=== PATIENT | male | born 1955 | race Caucasian/White ===

== ENCOUNTER → 2018-11-29 | Outpatient (CLI) | payer BC ==
[~2018-11-29] MED LIST: HYOS0.1281 PO; L.AC1CAP6 PO; MULT-1056 PO; OMG1KC PO; PHEN-640 PO; SULF1TAB35 PO; TAMS0.4C98 PO; TRAM-42 PO
--- NOTE | 2018-11-29 14:27 | Diagnostic Imaging Report ---
Indication: Bladder cancer Bladder ultrasound. There are are 3 calculi in the urinary bladder largest of which has a long axis diameter 2.7 cm. There are no detectable stones in the kidneys or the ureters. Impression: Stones present in the urinary bladder. There is no appreciable nephrolithiasis. Dictated by: Dictated on workstation # [id number]
== END ==
LOC: RAD 13:43
PROVIDERS: ATTEND Urology
DX: N21.0 Calculus in bladder (principal)
CPT/HCPCS: 74018

== ENCOUNTER 2018-11-30 14:15 | Outpatient (CLI) | payer BC ==
[~2018-11-30] VITALS: Ht 185.5 cm; Wt 75.0 kg
[2018-11-30] MEDS ORDERED: OMG1KC PO (14:31)
[2018-11-30] MEDS ORDERED: L.AC1CAP6 PO (14:31)
[2018-11-30] MEDS ORDERED: MULT-1056 PO (14:31)
[2018-11-30] MEDS ORDERED: TAMS0.4C98 PO (14:31)
[2018-12-01] MEDS ORDERED: PHEN-640 PO (09:18)
[2018-12-01] MEDS ORDERED: SULF1TAB35 PO (09:18)
[2018-12-01] MEDS ORDERED: TRAM-42 PO (09:19)
[2018-12-01] MEDS ORDERED: HYOS0.1281 PO (09:19)
== END 2018-11-30 14:36 | disposition home or self-care (01) ==
LOC: PREOP 14:15
PROVIDERS: ATTEND Urology
DX: Z01.818 Encounter for other preprocedural examination (principal)

== ENCOUNTER 2018-12-01 06:11 | Day surgery (SDC) | payer BC ==
[~2018-12-01] VITALS: Ht 185 cm; Wt 75.0 kg
[2018-12-01] VITALS (10 sets, daily range): BP systolic 81–139; BP diastolic 44–88
[~2018-12-01 06:11] MED LIST changes: -HYOS0.1281 PO; -PHEN-640 PO; -SULF1TAB35 PO; -TRAM-42 PO
[2018-12-01] MEDS: LACTATED RINGERS 1,000 ML IV PRN ×2 (06:30→08:38)
[2018-12-01] MEDS ORDERED: cefTRIAXone FOR IV USE 1,000 MG in WATER (STERILE) FOR INJECTION 10 ML IV ONE (06:30)
[2018-12-01] MEDS ORDERED: CATHETER FLUSH 10 ML SYR IV PRN (06:45)
[2018-12-01] MEDS ORDERED: LIDOCAINE PF 2% 5 ML (XYLOCAINE) VIAL ONE (07:09)
[2018-12-01] MEDS ORDERED: proPOfol 200 MG/20 ML (DIPRIVAN) VIAL IV ONE (07:09)
[2018-12-01] MEDS ORDERED: MIDAZOLAM 2 MG/2 ML (VERSED) VIAL ONE (07:10)
[2018-12-01] MEDS ORDERED: fentaNYL INJECTION 100 MCG/2 ML AMP ONE (07:10)
--- NOTE | 2018-12-01 07:23 | Progress Note-Pre Operative ---
Pre-Operative Progress Note H&P Reviewed The H&P was reviewed, patient examined and no changes noted. Date Seen by Provider: Dec 01, 2018 Time Seen by Provider: 07:23 Date H&P Reviewed: Dec 01, 2018 Time H&P Reviewed: 07:23 Pre-Operative Diagnosis: BLADDER STONES REJI CONTRERAS MD Dec 01, 2018 07:23
--- NOTE | 2018-12-01 07:25 | Progress Note-Post Operative ---
Post-Operative Progess Note Surgeon (s)/Imaging Manager (s) Surgeon REJI CONTRERAS MD Imaging Manager: NONE Pre-Operative Diagnosis BLADDER STONES Post-Operative Diagnosis SAME Procedure & Operative Findings Date of Procedure 12/01/18 Procedure Performed/Findings CYSTOLITHOTRIPSY Anesthesia Type GENERAL Estimated Blood Loss Estimated blood loss (mL): NEGLIGIBLE Specimens/Packing Specimens Removed BLADDER STONES FRAGMENTS Packing: NONE REJI CONTRERAS MD Dec 01, 2018 07:25
--- NOTE | 2018-12-01 07:26 | Discharge Inst-Urology ---
Discharge Inst-Urology Reconcile Patient Problems Problems Reviewed?: Yes Final Diagnosis BLADDER STONES Patient Instructions/Follow Up Plan/Assessment/Instructions Please make appointment to been seen in office in 4 weeks. Increase oral fluids for 48 hours and then as needed. Diet and Activity as tolerated. If questions or concerns contact your physician Or seek help at emergency department. REJI CONTRERAS MD Dec 01, 2018 07:26
[2018-12-01] MEDS ORDERED: SEVOFLURANE (ULTANE) 15 ML INHAL SOLN ONE ×5 (08:41→09:58)
[2018-12-01] MEDS ORDERED: SULF1TAB35 PO (09:18)
[2018-12-01] MEDS ORDERED: PHEN-640 PO (09:18)
[2018-12-01] MEDS ORDERED: HYOS0.1281 PO (09:19)
[2018-12-01] MEDS ORDERED: TRAM-42 PO (09:19)
--- NOTE | 2018-12-01 09:56 | Anesthesia-General Post-Op ---
General Patient Condition Mental Status/LOC: Same as Preop Cardiovascular: Satisfactory Nausea/Vomiting: Absent Respiratory: Satisfactory Pain: Controlled Complications: Absent Post Op Complications Complications None Follow Up Care/Instructions Patient Instructions None needed. Anesthesia/Patient Condition Patient Condition Patient is doing well, no complaints, stable vital signs, no apparent adverse anesthesia problems. No complications reported per nursing. INES FIELDS CRNA Dec 01, 2018 09:56
[2018-12-01] MEDS ORDERED: DEXAMETHASONE 10 MG/ML (DECADRON) 1 ML VIAL ONE (09:58)
[2018-12-01] MEDS ORDERED: ONDANSETRON 4 MG/2 ML (SDV) Z0FRAN ONE (09:58)
[2018-12-01] MEDS ORDERED: PHENAZOPYRIDINE 100 MG (PYRIDIUM) TABLET PO ONE (10:15)
[2018-12-01] MEDS ORDERED: PHENAZOPYRIDINE 100 MG (PYRIDIUM) TABLET ONE (10:22)
--- NOTE | 2018-12-01 15:38 | OPERATIVE REPORT ---
DATE OF SERVICE: 12/01/2018 PREOPERATIVE DIAGNOSIS: Bladder stones. POSTOPERATIVE DIAGNOSIS: Bladder stones. OPERATION PERFORMED: Cystolithotripsy. SURGEON: Ji Contreras MD ANESTHESIA: General. COMPLICATIONS: None. DESCRIPTION OF PROCEDURE: With the patient in lithotomy position, genitalia were prepped and draped in the usual sterile fashion. Cystoscope 23-Telugu in size was introduced in the bladder under vision. The anterior urethra was normal. The prostate revealed some enlargement with a median bar. Examination of the bladder again revealed three bladder stone, one large and two medium size. Using the LithoClast I completely fragmented all the stones, evacuated all the fragments calcifications. The bladder was completely free of any stone or fragments or calcification. There was no bladder tumor. Ureteric orifices were normal with clear effluxes. The bladder was evacuated and the cystoscope was removed. The patient tolerated the procedure and anesthesia well and was sent to recovery room in stable condition. Job ID: [id number] DocumentID: [id number] Dictated Date: 12/01/2018 08:59:34 Kiln Setter Date: 12/01/2018 15:36:29 Dictated By: JI CONTRERAS MD
== END 2018-12-01 10:45 | disposition home or self-care (01) ==
LOC: SDC 06:11
PROVIDERS: ATTEND Urology
DX: N21.0 Calculus in bladder (principal); K21.9 Gastro-esophageal reflux disease without esophagitis; Z79.899 Other long term (current) drug therapy
CPT/HCPCS: 87081; 88300